=== PATIENT | female | born 2005 | race Hispanic/Latino ===

== ENCOUNTER 2024-11-23 05:29 | Emergency (ER) | payer OTHER, SELFPAY ==
[2024-11-23 06:33] LABS: Absolute Basophils 0.1 K/uL (0-0.5); Absolute Eosinophils 0.3 K/uL (0-0.5); Absolute Lymphocytes (CBC) 2.8 K/uL (0.7-4.9); Absolute Neutrophil 6.9 K/uL (1.8-8.0); Basophils % 0.7 % (0-1.3); Hematocrit 41.9 % (36.0-45.0); Hemoglobin 13.7 g/dL (12.0-15.0); Lymphocytes % 25.2 % (15.3-44.8); MCH 29.8 pg (27.0-35.0); MCHC 32.8 g/dL (32.0-36.0); MCV 91.1 fL (80-100); MPV 9.8 fL (7.6-11.3); Monocytes % 9.3 % (3.3-12.3); Neutrophils % 61.8 % (41.7-73.7); Nucleated Red Blood Cells % 0.1 % (0-0); Platelets 282 thou/uL (152-406); RBC Red Blood Cell Count 4.59 M/uL (3.86-4.86); Red Cell Distribution Width 14.3 % (12.1-15.2)
[2024-11-23 06:36] LABS: Specific Gravity > 1.030 (1.005-1.030)
[2024-11-23 06:36] LABS: PT Prothrombin Time 11.8 SECONDS (9.4-12.5); PTT, Activated Partial Thromb 31.5 SECONDS (24.3-36.9); Protime INR 1.13
[2024-11-23 06:40] LABS: Specific Gravity > 1.030 (1.005-1.030); Urine Bacteria <20 /HPF (<20); Urine Bilirubin NEGATIVE (Negative); Urine Blood 1+ (Negative); Urine Clarity Extremely Turbid (Clear); Urine Color Yellow (Yellow); Urine Culture Reflex Order NOT NEEDED; Urine Glucose NEGATIVE (Negative); Urine Ketones NEGATIVE (Negative); Urine Microscopic Reflex YN ORDER UMIC; Urine Mucus 3+ /HPF (None Seen); Urine Nitrite NEGATIVE (Negative); Urine Protein 1+ (Negative); Urine RBC <5 /HPF (None Seen); Urine Urobilinogen Normal (Normal); Urine WBC <5 /HPF (<5); Urine pH 5.5 (5.0-7.0)
[2024-11-23 06:41] LABS: ALT/SGPT 15 U/L (13-56); AST/SGOT 17 U/L (15-37); Albumin 3.9 g/dL (3.4-5.0); Albumin/Globulin Ratio 1.1 (1.1-1.8); Alkaline Phosphatase 53 U/L (45-117); Anion Gap 12.4 mEq/L (5.0-15.0); BUN Blood Urea Nitrogen 11 mg/dL (7-18); Bicarbonate 22 mEq/L (21-32); Bilirubin Total 0.2 mg/dL (0.2-1.0); Globulin 3.5 g/dL (2.3-3.5); Glomerular Filtration Rate 121 ml/min (=/>90); Glucose Level 96 mg/dL (74-106); Magnesium 2.1 mg/dL (1.6-2.4); Potassium 3.4 mEq/L (3.5-5.1); Protein, Total 7.4 g/dL (6.4-8.2); Sodium Level 138 mEq/L (136-145)
[2024-11-23 06:44] LABS: Barbiturates NEGATIVE (NEGATIVE); Benzodiazepines NEGATIVE (NEGATIVE); Cocaine NEGATIVE (NEGATIVE); METHAMPHETAM NEGATIVE (NEGATIVE); Methadone NEGATIVE (NEGATIVE); Opiates NEGATIVE (NEGATIVE); Phencyclidine NEGATIVE (NEGATIVE); THC Cannibis POSITIVE (NEGATIVE)
--- NOTE | 2024-11-23 06:53 | RAD REPORT ---
EXAMINATION: CT HEAD WITHOUT CONTRAST CLINICAL INDICATION: Female, 19 years old.SYNCOPE TECHNIQUE: Axial CT images from the skull base to the vertex without intravenous contrast. Coronal an d sagittal reformatted images were created from the data set. One or more of the following dose reduction techniques were used: Automated exposure control, adjustment of the mA and/or kV according to patient size, and/or iterative reconstruction. Unless otherwise specified, incidental findings do not require dedicated imaging follow-up. [id number]. COMPARISON: No prior exam. FINDINGS: INTRACRANIAL: No acute intracranial hemorrhage. No hydrocephalus. No mass effect or midline shift. No significant white matter disease. VASCULATURE: No visualized abnormalities in the arteries or dural venous sinuses. SCALP/SKULL: No significant soft tissue or osseous abnormalities. SINUSES: Mucosal thickening right maxillary sinus. IMPRESSION: No acute intracranial abnormality.
[2024-11-23 06:58] LABS: Bilirubin Direct < 0.2 mg/dL (0-0.2)
--- NOTE | 2024-11-23 08:26 | ER ---
Nurse's Notes [facility] Name: Shannan Bojorquez Age: 19 yrs Sex: Female : 2005 Arrival Date: 11/23/2024 Time: 05:29 Bed 7 Private MD: Diagnosis: Syncope Presentation: 11/23 05:44 Chief complaint: Patient states: having a bowel movement and had a seizure. [place] numb vc1 and then got tunnel vision prior to seizure. Coronavirus screen: Client denies travel out of the [place] in the last 14 days. At this time, the client does not indicate any symptoms associated with coronavirus-19. Ebola Screen: Patient negative for fever greater than or equal to 101.5 degrees Fahrenheit, and additional compatible Ebola Virus Disease symptoms Patient denies exposure to infectious person. Patient denies travel to an Ebola-affected area in the 21 days before illness onset. No symptoms or risks identified at this time. Initial Sepsis Screen: Does the patient meet any 2 criteria? No. Patient's initial sepsis screen is negative. Does the patient have a suspected source of infection? No. Patient's initial sepsis screen is negative. Risk Assessment: Do you want to hurt yourself or someone else? Patient reports no desire to harm self or others. Onset of symptoms was November 23, 2024 at 05:20. 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 - Infectious Disease History:: Denies. - Social history:: Smoking status: Patient denies any tobacco usage or history of. Screenin:53 [facility] ED Fall Risk Assessment (Adult) History of falling in the last 3 months, vc1 including since admission No falls in past 3 months (0 pts) Confusion or Disorientation No (0 pts) Intoxicated or Sedated No (0 pts) Impaired Gait No (0 pts) Mobility Assist Device Used No (0 pt) Altered Elimination No (0 pt) Score/Fall Risk Level 0 - 2 = Low Risk Oriented to surroundings, Maintained a safe environment, Educated pt \T\ family on fall prevention, incl call for assistance when getting out of bed, Hourly rounding (assess needs \T\ fall precautionary measures) done. Abuse screen: Denies threats or abuse. Nutritional screening: No deficits noted. Tuberculosis screening: No symptoms or risk factors identified. 06:11 Exposure risk/Travel Screening: None identified. mt4 Assessment: 06:11 General: Appears in no apparent distress. comfortable, Behavior is calm, cooperative, mt4 appropriate for age. Pain: Denies pain. Neuro: Level of Consciousness is awake, alert, obeys commands, Oriented to person, place, time, situation, Appropriate for age Case Investigator are equal bilaterally Moves all extremities. Gait is steady, Speech is normal, Facial symmetry appears normal. Neuro: Seizure activity reported prior to arrival. Cardiovascular: Capillary refill < 3 seconds. Respiratory: Airway is patent Respiratory effort is even, unlabored, Respiratory pattern is regular, symmetrical. GI: Abdomen is flat, non-distended, Abd is soft and non tender X 4 quads. : Denies burning with urination. Musculoskeletal: Range of motion: intact in all extremities. 08:57 Reassessment: Patient appears in no apparent distress at this time. No changes from ld1 previously documented assessment. Patient and/or family updated on plan of care and expected duration. Pain level reassessed. Patient is alert, oriented x 3, equal unlabored respirations, skin warm/dry/pink. Vital Signs: 05:44 BP 117 / 83; Pulse 71; Resp 14; Temp 97.6; Pulse Ox 96% ; Weight 43.54 kg; Height 5 ft. vc1 1 in. ; Pain 0/10; 06:11 BP 106 / 64 Supine; Pulse 58; mt4 06:11 BP 108 / 67 Sitting; Pulse 60; mt4 06:11 BP 104 / 65 Standing; Pulse 65; mt4 08:57 BP 111 / 69; Pulse 61; Resp 18; Pulse Ox 97% on R/A; ld1 05:44 Body Mass Index 18.14 (43.54 kg, 154.94 cm) vc1 05:44 Pain Scale: Adult vc1 Vitals: 06:11 Cardiac Rhythm Assessment Regular. mt4 [place] Coma Score: 06:11 Eye Response: spontaneous(4). Motor Response: obeys commands(6). Verbal Response: mt4 oriented(5). Total: 15. 08:58 Eye Response: spontaneous(4). Motor Response: obeys commands(6). Verbal Response: ld1 oriented(5). Total: 15. ED Course: 05:32 Patient arrived in ED. jj6 05:38 Concepcion Medina MD is Attending Physician. sp3 05:42 Tori Calvo, RN is Primary Nurse. mt4 05:47 Triage completed. vc1 05:52 Arm band placed on right wrist. vc1 05:53 Patient has correct armband on for positive identification. Bed in low position. Call vc1 light in reach. Pulse ox on. NIBP on. 06:11 No apparent distress. Resting quietly. mt4 06:11 Bed in low position. Call light in reach. Side rails up X 1. Provided Education on: mt4 lab. Client placed on continuous cardiac and pulse oximetry monitoring. NIBP monitoring applied. fiberglass product tester on. Pulse ox on. Door closed. Lights dimmed. Warm blanket given. Diet tray ordered. Verbal reassurance given. Assisted to bathroom. 06:11 No provider procedures requiring assistance completed. Inserted saline lock: 20 gauge mt4 in right Blood collected. Flushed with 10 mL NS. 06:11 Patient maintains SpO2 saturation greater than 95% on room air. mt4 06:18 CT Head Brain wo Cont In Process Unspecified. EDMS 07:02 Attending Physician role handed off by Concepcion Medina MD rn 07:02 Seth Biswas MD is Attending Physician. rn 08:57 IV discontinued, intact, bleeding controlled, No redness/swelling at site. ld1 08:58 Seizure precautions initiated. ld1 Administered Medications: No medications were administered Medication: 05:53 VIS not applicable for this client. vc1 Outcome: 08:26 Discharge ordered by . rn 08:57 Discharged to home ambulatory, ld1 08:57 Condition: stable 08:57 Discharge instructions given to patient, Instructed on discharge instructions, follow up and referral plans. Demonstrated understanding of instructions, follow-up care, 08:58 Patient left the ED. ld1 Signatures: Dispatcher [employer] EDMO Seth Biswas MD MD rn Sims, Lauren, RN RN ld1 Concepcion Medina MD MD sp3 Shira Youngblood jj6 Nelly Brothers, RN RN vc1 Tori Calvo, RN RN mt4
--- NOTE | 2024-11-23 08:27 | EDPHYS ---
Physician Documentation [facility] Name: Shannan Bojorquez Age: 19 yrs Sex: Female : 2005 Arrival Date: 11/23/2024 Time: 05: Bed 7 Private MD: ED Physician Seth Biswas HPI: 11/23 06:07 This 19 yrs old Female presents to ER via Ambulatory with complaints of sp3 Seizure, PT IS VERY PALE AND HAS H/O ANEMIA. 06:07 19-year-old female with history of anemia presents with syncopal episode while she was sp3 on the toilet. Patient significant other was also in the bathroom and during the process she fell and hit her head on the sink and significant other reports shaking episode that lasted anywhere from 7 to 8 seconds with no described postictal type episode. No prior history of seizures. No other episodes since that 1. Patient does endorse heavy menses. Review of systems negative for neck pain, chest pain, shortness of breath, full syncope, vomiting, diarrhea, missed menses, back pain, travel history, prolonged immobilization, or any other signs or symptoms on ROS at this time.. 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 - Infectious Disease History:: Denies. - Social history:: Smoking status: Patient denies any tobacco usage or history of. ROS: 06:08 Constitutional: Negative for fever, chills, and weight loss, Eyes: Negative for injury, sp3 pain, redness, and discharge, ENT: Negative for injury, pain, and discharge, Neck: Negative for injury, pain, and swelling, Respiratory: Negative for shortness of breath, cough, wheezing, and pleuritic chest pain, Abdomen/GI: Negative for abdominal pain, nausea, vomiting, diarrhea, and constipation, Back: Negative for injury and pain, MS/Extremity: Negative for injury and deformity, Skin: Negative for injury, rash, and discoloration, Psych: Negative for depression, anxiety, suicide ideation, homicidal ideation, and hallucinations, Allergy/Immunology: Negative for hives, rash, and allergies, Endocrine: Negative for neck swelling, polydipsia, polyuria, polyphagia, and marked weight changes, 06:08 All other systems are negative, Exam: 06:09 Constitutional: This is a well developed, well nourished patient who is awake, alert, sp3 and in no acute distress. Head/Face: Normocephalic, atraumatic. Eyes: Pupils equal round and reactive to light, extra-ocular motions intact. Lids and lashes normal. Conjunctiva and sclera are non-icteric and not injected. Cornea within normal limits. Periorbital areas with no swelling, redness, or edema. Neck: Trachea midline, no thyromegaly or masses palpated, and no cervical lymphadenopathy. Supple, full range of motion without nuchal rigidity, or vertebral point tenderness. No Meningismus. Chest/axilla: Normal chest wall appearance and motion. Nontender with no deformity. No lesions are appreciated. Cardiovascular: Regular rate and rhythm with a normal S1 and S2. No gallops, murmurs, or rubs. Normal PMI, no JVD. No pulse deficits. Respiratory: Lungs have equal breath sounds bilaterally, clear to auscultation and percussion. No rales, rhonchi or wheezes noted. No increased work of breathing, no retractions or nasal flaring. Abdomen/GI: Soft, non-tender, with normal bowel sounds. No distension or tympany. No guarding or rebound. No evidence of tenderness throughout. Back: No spinal tenderness. No costovertebral tenderness. Full range of motion. MS/ Extremity: Pulses equal, no cyanosis. Neurovascular intact. Full, normal range of motion. Neuro: Awake and alert, GCS 15, oriented to person, place, time, and situation. Cranial nerves II-XII grossly intact. Motor strength 5/5 in all extremities. Sensory grossly intact. Cerebellar exam normal. Normal gait. Psych: Awake, alert, with orientation to person, place and time. Behavior, mood, and affect are within normal limits. 06:09 Skin: Appearance: Patient pale, 06:22 ECG was reviewed by the Attending Physician. EKG demonstrates normal sinus rhythm at 65 sp3 bpm with normal intervals, normal QRS, normal axis, normal ST/T segments without evidence of acute ischemia. Vital Signs: 05:44 BP 117 / 83; Pulse 71; Resp 14; Temp 97.6; Pulse Ox 96% ; Weight 43.54 kg; Height 5 ft. vc1 1 in. ; Pain 0/10; 06:11 BP 106 / 64 Supine; Pulse 58; mt4 06:11 BP 108 / 67 Sitting; Pulse 60; mt4 06:11 BP 104 / 65 Standing; Pulse 65; mt4 08:57 BP 111 / 69; Pulse 61; Resp 18; Pulse Ox 97% on R/A; ld1 05:44 Body Mass Index 18.14 (43.54 kg, 154.94 cm) vc1 05:44 Pain Scale: Adult vc1 [place] Coma Score: 06:11 Eye Response: spontaneous(4). Motor Response: obeys commands(6). Verbal Response: mt4 oriented(5). Total: 15. 08:58 Eye Response: spontaneous(4). Motor Response: obeys commands(6). Verbal Response: ld1 oriented(5). Total: 15. MDM: 05:38 Medical Screening Exam initiated sp3 06:09 Data reviewed: vital signs, nurses notes. ED course: 19-year-old female with syncopal sp3 episode and head injury and "shaking episode". I am not highly suspicious of seizure though it is still a possibility. Patient likely had a syncopal episode from vasovagal episode versus anemia versus electrolyte abnormality versus other. Clinically, highly suspicious of sepsis or shock. Workup will include CT scan of the head, EKG, labs, UA, UDS, hCG, and general supportive care. Disposition pending workup and patient course. Patient likely will be signed out to daytime physician for final disposition and reevaluation.. 07:03 ED course: Signed out to me by Dr. Medina who states ct head negative. He does not rn believe was a seizure, leaning more towards syncope. His plan is to dc home if workup clear. . 08:25 Differential diagnosis: seizure, Syncope, early infection, UTI, . Counseling: rn I had a detailed discussion with the patient and/or guardian regarding the historical points, exam findings, and any diagnostic results supporting the discharge/admit diagnosis, lab results, radiology results, the need for outpatient follow up, to return to the emergency department if symptoms worsen or persist or if there are any questions or concerns that arise at home. Response to treatment: the patient's symptoms have markedly improved after treatment, the patient's condition has returned to base line, the patient is now symptom free, and as a result, I will discharge patient. Special discussion: I discussed with the patient/guardian in detail that at this point there is no indication for admission to the hospital. It is understood, however, that if the symptoms persist or worsen the patient needs to return immediately for re-evaluation. ED course: I have personally reviewed all of the results, including but not limited to blood tests and imaging deemed necessary to safely discharge this patient at this time. All results given to and printed out for patient. I personally went over all the results with the patient and answered all questions. Patient will follow-up with PCP and or specialist as discussed. Return precautions given and understood.. 11/23 05:47 Order name: Basic Metabolic Panel; Complete Time: 07:11/23 05:47 Order name: CBC with Diff; Complete Time: :11/23 05:47 Order name: Hepatic Function; Complete Time: :11/23 05:47 Order name: Magnesium; Complete Time: 07:11/23 05:47 Order name: Test, Urine; Complete Time: :11/23 05:47 Order name: Protime (+inr); Complete Time: :11/23 05:47 Order name: Ptt, Activated; Complete Time: 06:11/23 05:47 Order name: UDS; Complete Time: 06:55 11/23 05:47 Order name: Urinalysis w/ reflexes; Complete Time: :11/23 05:48 Order name: Type And Screen; Complete Time: 08:09 11/23 05:47 Order name: CT Head Brain wo Cont; Complete Time: 06:11/23 05:47 Order name: Cardiac monitoring; Complete Time: 06:11/23 05:47 Order name: EKG - Nurse/Tech; Complete Time: 06:11/23 05:47 Order name: IV Saline Lock; Complete Time: 06:08 11/23 05:47 Order name: Labs collected and sent; Complete Time: 06:08 3 11/23 05:47 Order name: NPO; Complete Time: 06:26 sp3 11/23 05:47 Order name: O2 Sat Monitoring; Complete Time: 06:08 3 11/23 05:47 Order name: Orthostatics; Complete Time: 06:26 3 11/23 06:30 Order name: Labs - recollect needed: type and screen recollect; Complete Time: 06:40 kmf Administered Medications: No medications were administered Disposition Summary: 11/23/24 08:26 Discharge Ordered Notes: Location: Home rn Problem: new rn Symptoms: have improved rn Condition: Stable rn Diagnosis - Syncope rn Followup: rn - With: Private Physician - When: As needed - Reason: Recheck today's complaints, Re-evaluation by your physician Discharge Instructions: - Discharge Summary Sheet rn - Syncope rn Forms: - Medication Reconciliation Form rn - 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 EDMS EDMS 05:48 05:48 CBC+H.LAB.BRZ ordered. EDMS EDMS 05:48 05:48 HEPATIC FUNCTION+C.LAB.BRZ ordered. EDMS EDMS 05:48 05:48 MAGNESIUM+C.LAB.BRZ ordered. EDMS EDMS 05:48 05:48 Test, Urine+UC.LAB.BRZ ordered. EDMS EDMS 05:48 05:48 PROTIME (+INR)+COAG.LAB.BRZ ordered. EDMS EDMS 05:48 05:48 PTT, ACTIVATED+COAG.LAB.BRZ ordered. EDMS EDMS 05:48 05:48 URINE DRUG SCREEN+UC.LAB.BRZ ordered. EDMS EDMS 05:48 05:48 Urinalysis+U.LAB.BRZ ordered. EDMS EDMS 05:48 05:48 Head Brain Wo Cont+CT.RAD.BRZ ordered. EDMS EDMS 05:48 05:48 TYPE AND SCREEN+BB.LAB.BRZ ordered. EDMS EDMS
[2024-11-23 13:58] VITALS: TEMP 97.6
[2024-11-23 14:10] VITALS: BP 111/69; O2SAT 97
== END 2024-11-23 08:58 | disposition home or self-care (01) ==
LOC: ER 05:29
DX: R55 Syncope and collapse (principal)
CPT/HCPCS: 36415; 70450; 80048; 80076; 80307; 81001; 81025; 83735; 85025; 85610; 85730; 86850; 86900; 86901